=== PATIENT | female | born 1995 | race Caucasian/White ===

== ENCOUNTER 2019-12-01 19:01 | Emergency (ER) | payer MEDICAID, OTHER ==
[~2019-12-01] VITALS: Ht 162.6 cm; Wt 61.3 kg
[~2019-12-01 19:01] MED LIST: NO HOME MEDS; NORG1TAB41 PO
[2019-12-01 19:05] VITALS: BP 141/80
--- NOTE | 2019-12-01 20:29 | NUR ---
Dr. Sierra is with the patient at this time.
[2019-12-01] MEDS ORDERED: ketorolac trometh inj. 60 MG/2 ML VIAL IM ONE (20:35)
== END 2019-12-01 21:27 | disposition home or self-care (01) ==
LOC: ER 19:03
DX: S39.012A Strain of muscle, fascia and tendon of lower back, initial encounter (principal); M25.561 Pain in right knee; F12.90 Cannabis use, unspecified, uncomplicated; X50.1XXA Overexertion from prolonged static or awkward postures, initial encounter; Y93.89 Activity, other specified; Y92.89 Other specified places as the place of occurrence of the external cause; Y99.9 Unspecified external cause status
CPT/HCPCS: 73564; 96372; 99283; J1885

== ENCOUNTER 2020-10-08 04:15 | Emergency (ER) | payer OTHER ==
[~2020-10-08] VITALS: Ht 162.6 cm; Wt 68.2 kg
[2020-10-08 04:21] VITALS: BP 130/60
[2020-10-08] MEDS ORDERED: acetaminophen 325mg tablet PO ONE (05:30)
[2020-10-08] MEDS ORDERED: ibuprofen tablet 400 MG TABLET PO ONE (05:30)
[2020-10-08] MEDS ORDERED: ibuprofen 200mg tablet PO ONE (05:40)
== END 2020-10-08 06:05 | disposition home or self-care (01) ==
LOC: ER 04:15
DX: M25.579 Pain in unspecified ankle and joints of unspecified foot (principal); F12.10 Cannabis abuse, uncomplicated; W22.03XA Walked into furniture, initial encounter; Y93.89 Activity, other specified; Y92.89 Other specified places as the place of occurrence of the external cause; Y99.8 Other external cause status
CPT/HCPCS: 29515; 73610; 99284